=== PATIENT | male | born 2005 | race Asian ===

== ENCOUNTER 2024-04-20 02:30 | Emergency (ER) | payer OTHER ==
[~2024-04-20] VITALS: Ht 172.7 cm; Wt 63.0 kg
[2024-04-20 02:40] VITALS: BP_SYST 116; PULSE 89; RESP 18; TEMP 98.8; O2SAT 98
[2024-04-20] MEDS ORDERED: DIPHTH,PERTUSS(ACELL),TET VAC 0.5 ML VIAL (Tdap) I.M. ONE (03:45)
[2024-04-20 04:42] LABS: COVID19 ANTIGEN SOFIA FIA NEGATIVE (NEGATIVE)
[2024-04-20 04:43] LABS: INFLUENZA TYPE A Negative (NEGATIVE); INFLUENZA TYPE B NEGATIVE (NEGATIVE)
[2024-04-20 04:58] VITALS: BP_SYST 112; PULSE 89; RESP 18; TEMP 98.2; O2SAT 100
== END 2024-04-20 04:58 | disposition home or self-care (01) ==
LOC: SED 02:30
DX: R50.9 Fever, unspecified (principal); M79.10 Myalgia, unspecified site; Z20.822 Contact with and (suspected) exposure to COVID-19
CPT/HCPCS: 36415; 90715; 99283

== ENCOUNTER 2024-07-09 02:02 | Emergency (ER) | payer OTHER ==
[~2024-07-09] VITALS: Ht 175.3 cm; Wt 62.1 kg
[2024-07-09 02:06] VITALS: BP_SYST 116; PULSE 61; RESP 20; TEMP 98; O2SAT 98
[2024-07-09 02:56] VITALS: BP_SYST 116; PULSE 61; RESP 20; TEMP 98; O2SAT 98
== END 2024-07-09 02:56 | disposition home or self-care (01) ==
LOC: SED 02:02
DX: S61.213A Laceration without foreign body of left middle finger without damage to nail, initial encounter (principal); W22.09XA Striking against other stationary object, initial encounter; Y93.89 Activity, other specified; Y92.89 Other specified places as the place of occurrence of the external cause; Y99.8 Other external cause status
CPT/HCPCS: 99284